=== PATIENT | female | born 1980 | race Caucasian/White ===

== ENCOUNTER 2016-10-13 14:29 | Emergency (ER) | payer BC, OTHER ==
[~2016-10-13] VITALS: Ht 165.1 cm; Wt 64.5 kg
[~2016-10-13 14:29] MED LIST: PRENTAB26 PO
[2016-10-13 14:34] VITALS: TEMP 36.4; Ht 165.1 cm; Wt 64.5 kg
[2016-10-13] MEDS ORDERED: SODIUM CHLORIDE 0.9% 1000ML 1,000 ML IV STA (15:25)
[2016-10-13 16:02] LABS: BASO % 0.2 %; BASO ABS # 0.01 K/uL (0-0.2); COMPLETE YES; EOS % 2.6 %; HEMATOCRIT 41.1 % (37-47); IG% 0.3 %; LYMPH % 29.7 %; MEAN CELL VOLUME 89.9 fL (80-100); MEAN CORPUSCULAR HEMOGLOBIN 31.3 pg (25-34); MEAN CORPUSCULAR HGB CONC 34.8 g/dl (32-36); MEAN PLATELET VOLUME 10.9 fL (7.4-10.4); MONO % 6.9 %; NEUT % 60.3 %; PLATELET COUNT 202 K/uL (130-400); RED BLOOD COUNT 4.57 M/uL (4.2-5.4); WHITE BLOOD COUNT 6.07 K/uL (4.8-10.8)
[2016-10-13 16:30] LABS: PREG INTERNAL NEGATIVE QC NEG CLEAR BACKGROUND; PREG INTERNAL POSITIVE QC POS CONTROL LINE
[2016-10-13 16:33] LABS: ALKALINE PHOSPHATASE 78 U/L (45-117); ALT/SGPT 20 U/L (12-78); AST/SGOT 21 U/L (15-37); BLOOD UREA NITROGEN 15 mg/dl (7-18); BUN/CREATININE RATIO 17.1 (10-20); CALCIUM 8.9 mg/dl (8.5-10.1); CARBON DIOXIDE 28 mmol/L (21-32); CHLORIDE 103 mmol/L (98-107); CREATININE 0.85 mg/dl (0.60-1.20); GLUCOSE 77 mg/dl (70-99); POTASSIUM 3.7 mmol/L (3.5-5.1); SODIUM 142 mmol/L (136-145)
[2016-10-13 16:41] LABS: URINE APPEARANCE CLEAR (CLEAR); URINE BILIRUBIN NEG (NEG); URINE COLOR YELLOW; URINE EPITHELIAL CELL AUTO 0-5 /lpf (0-5); URINE NITRITE NEG (NEG); UROBILINOGEN NEG (NEG)
[2016-10-13 16:43] LABS: MANUAL MICROSCOPIC REQUIRED? NO; REVIEW REQ? NO
--- NOTE | 2016-10-13 16:55 | DIAGNOSTIC IMAGING REPORT ---
EXAMINATION: PELVIC ULTRASOUND CLINICAL HISTORY: LOWER PELVIC PAIN/VAG SPOTTING PAIN. COMPARISON STUDY: None FINDINGS: The uterus measured 6.5 cm. The endometrial stripe measured 2 mm. The right ovary measured 2.8 cm maximum dimension.. The left ovary measured 2.0 cm maximum dimension. There is no ultrasonographic evidence of ovarian torsion. It should be noted that ovarian torsion can be present with normal Doppler ultrasonographic findings. There was no evidence of pathologic free pelvic fluid. IMPRESSION: Normal study Electronically signed by: Franc Milian M.D. 10/13/2016 4:54 PM Dictated Date/Time: 10/13/2016 4:52 PM
--- NOTE | 2016-10-13 17:30 | EMERGENCY ROOM VISIT NOTE ---
History First contact with patient: 15:10 Chief Complaint: ABDOMINAL PAIN Stated Complaint: ABDOMINAL PAIN,BACK PAIN Nursing Triage Summary: Triage note: Pt reports sharp abd pain in right lower abd pain at 1220 today that last approx 30 min. pt also reports lower back pain. pt reports right lower abd is tender at this time. History of Present Illness The patient is a 36 year old female who presents to the Emergency Room with complaints of sharp right lower quadrant abdominal pain that goes into the right lower back region. The patient reports that the pain developed around noon time today. The pain was severe and cramping for approximately 30 minutes before it started to subside. The patient did not have any nausea at the time of the pain. She now reports that the pain has decreased to a 2 out of 10. She denies any significant worsening with bending over or movement. She denies any prior history of kidney stones. She does report a remote history of an ovarian cyst. And has had some mild vaginal spotting. Last menstruation started 2 weeks ago, and the patient denies . She denies any urinary symptoms, diarrhea or constipation. The patient has had a prior history of C- section. Review of Systems HEENT: Denies dizziness, visual problems, hearing loss, tinnitus. Denies difficulty swallowing or oral lesions. PULMONARY: Denies cough, shortness of breath, sputum production or hemoptysis. CARDIOVASCULAR: Denies chest pain, palpitations, dyspnea on exertion, orthopnea or peripheral edema. GASTROINTESTINAL: Denies diarrhea, constipation, nausea or vomiting. Otherwise see history of present illness. GENITOURINARY: Denies dysuria, frequency, urgency or nocturia. NEUROLOGIC: Denies history of epilepsy, CVA, TIA or chronic headaches. MUSCULOSKELETAL: Denies history of joint tenderness/swelling. SKIN: Denies rashes or lesions. PSYCHIATRIC: Denies history of depression or mental illness. ENDOCRINE: Denies history of diabetes or thyroid disorders. Past Medical/Surgical History Medical Problems: (1) Post-dates Family History Unremarkable Social History Smoking Status: Never Smoker Drug Use: none Marital Status: Housing Status: lives with family Occupation Status: employed Current/Historical Medications Scheduled Multivit/Min/Iron/Fol Ac/Pren ( Vitamin), 1 TAB PO QAM Allergies Coded Allergies: No Known Allergies (Unverified , 07/04/16) Physical Exam Vital Signs Date Time Temp Pulse Resp B/P Pulse Ox O2 Delivery O2 Flow Rate FiO2 10/13/16 16:21 54 12 107/62 98 Room Air 10/13/16 14:34 36.4 64 18 132/86 98 Room Air Physical Exam CONSTITUTIONAL: Healthy and well nourished. Alert and oriented X 3 with positive affect. Patient does not appear in any acute distress. HEENT: Normocephalic, atraumatic. Pupils equal, round and reactive. No scleral icterus or conjunctival pallor. NECK: Full active range of motion without discomfort. RESPIRATORY: Clear to auscultation bilaterally with no wheezing, crackles, rhonchi or stridor. CARDIOVASCULAR: Regular rate and rhythm with no murmurs, rubs or gallops. GASTROINTESTINAL: Bowel sounds present in all quadrants. Patient has minimal suprapubic tenderness to palpation. Negative McBurney's point tenderness. Negative Rovsing sign. Negative psoas/obturator sign. Negative heel tap. Negative CVA tenderness. No abdominal rigidity, guarding or rebound. MUSCULOSKELETAL: Full range of motion of all joints without discomfort. INTEGUMENTARY: No rash or other significant dermatologic conditions noted. HEMATOLOGIC: No ecchymosis or petechiae appreciated. NEUROLOGIC: No focal neurologic deficits noted. Medical Decision & Procedures ER Provider Diagnostic Interpretation: Pelvic ultrasound was normal, and shows the following: EXAMINATION: PELVIC ULTRASOUND CLINICAL HISTORY: LOWER PELVIC PAIN/VAG SPOTTING PAIN. COMPARISON STUDY: None FINDINGS: The uterus measured 6.5 cm. The endometrial stripe measured 2 mm. The right ovary measured 2.8 cm maximum dimension.. The left ovary measured 2.0 cm maximum dimension. There is no ultrasonographic evidence of ovarian torsion. It should be noted that ovarian torsion can be present with normal Doppler ultrasonographic findings. There was no evidence of pathologic free pelvic fluid. IMPRESSION: Normal study. Laboratory Results 10/13/16 15:49 Red Blood Count 4.57, Mean Corpuscular Volume 89.9, Mean Corpuscular Hemoglobin 31.3, Mean Corpuscular Hemoglobin Concent 34.8, Mean Platelet Volume 10.9, Neutrophils (%) (Auto) 60.3, Lymphocytes (%) (Auto) 29.7, Monocytes (%) (Auto) 6.9, Eosinophils (%) (Auto) 2.6, Basophils (%) (Auto) 0.2, Neutrophils # (Auto) 3.66, Lymphocytes # (Auto) 1.80, Monocytes # (Auto) 0.42, Eosinophils # (Auto) 0.16, Basophils # (Auto) 0.01 10/13/16 15:49 Test 10/13/16 15:49 White Blood Count 6.07 K/uL (4.8-10.8) Red Blood Count 4.57 M/uL (4.2-5.4) Hemoglobin 14.3 g/dL (12.0-16.0) Hematocrit 41.1 % (37-47) Mean Corpuscular Volume 89.9 fL (80-100) Mean Corpuscular Hemoglobin 31.3 pg (25-34) Mean Corpuscular Hemoglobin Concent 34.8 g/dl (32-36) Platelet Count 202 K/uL (130-400) Mean Platelet Volume 10.9 fL (7.4-10.4) Neutrophils (%) (Auto) 60.3 % Lymphocytes (%) (Auto) 29.7 % Monocytes (%) (Auto) 6.9 % Eosinophils (%) (Auto) 2.6 % Basophils (%) (Auto) 0.2 % Neutrophils # (Auto) 3.66 K/uL (1.4-6.5) Lymphocytes # (Auto) 1.80 K/uL (1.2-3.4) Monocytes # (Auto) 0.42 K/uL (0.11-0.59) Eosinophils # (Auto) 0.16 K/uL (0-0.5) Basophils # (Auto) 0.01 K/uL (0-0.2) RDW Standard Deviation 43.7 fL (36.4-46.3) RDW Coefficient of Variation 13.3 % (11.5-14.5) Immature Granulocyte % (Auto) 0.3 % Immature Granulocyte # (Auto) 0.02 K/uL (0.00-0.02) Urine Color YELLOW Urine Appearance CLEAR (CLEAR) Urine pH 6.0 (4.5-7.5) Urine Specific [place] 1.000 (1.000-1.030) Urine Protein NEG (NEG) Urine Glucose (UA) NEG (NEG) Urine Ketones NEG (NEG) Urine Occult Blood TRACE (NEG) Urine Nitrite NEG (NEG) Urine Bilirubin NEG (NEG) Urine Urobilinogen NEG (NEG) Urine Leukocyte Esterase NEG (NEG) Urine WBC (Auto) 0 /hpf (0-5) Urine RBC (Auto) 0-4 /hpf (0-4) Urine Hyaline Casts (Auto) 0 /lpf (0-5) Urine Epithelial Cells (Auto) 0-5 /lpf (0-5) Urine Bacteria (Auto) NEG (NEG) Anion Gap 11.0 mmol/L (3-11) Est Creatinine Clear Calc Drug Dose 81.5 ml/min Estimated GFR () 101.5 Estimated GFR (Non- 87.5 BUN/Creatinine Ratio 17.1 (10-20) Calcium Level 8.9 mg/dl (8.5-10.1) Total Bilirubin 0.7 mg/dl (0.2-1) Direct Bilirubin mg/dl (0-0.2) Aspartate Amino Transf (AST/SGOT) 21 U/L (15-37) Alanine Aminotransferase (ALT/SGPT) 20 U/L (12-78) Alkaline Phosphatase 78 U/L (45-117) Total Protein 7.5 gm/dl (6.4-8.2) Albumin 4.0 gm/dl (3.4-5.0) Lipase 139 U/L (73-393) Human Chorionic Gonadotropin, Qual NEG (NEG) Chemistry Specimen Hemolysis The above labs were reviewed and were grossly normal. Medications Administered Medications (Trade) Dose Ordered Sig/Abraham Route Start Time Stop Time Status Last Admin Dose Admin Sodium Chloride (Nss 1000ml) 1,000 ml @ 999 mls/hr Q1H1M STAT IV 10/13/16 15:25 10/13/16 16:25 DC 10/13/16 16:21 999 MLS/HR ED Course Patient history and physical exam were performed. Nurse's notes were reviewed. Vital signs were reviewed and were normal. The patient refused any analgesics or antiemetics. IV access was established, and labs were drawn. The patient was hydrated with a liter normal saline. Review of labs shows no significant abnormal findings. Serum was negative. Pelvic ultrasound was also normal. On reexam, the patient reported no further discomfort. I did explain to the patient that she could potentially have early appendicitis, and was instructed to return to the emergency department if this develops. I did suggest that she follow-up with her [employer] with any persistent vaginal bleeding/spotting. I also discussed the possibility of other GI conditions, including constipation. I did offer further CT studies of the abdomen, although I do not feel it is warranted at this time. I also discussed the risks of unnecessary radiation exposure. At this point, the patient and agrees with conservative management. The patient was happy with plan of care, and voiced understanding of all discharge instructions. Medical Decision See previous section. The patient presents with rather abrupt onset of right lower quadrant pain that is now improving. The patient has no fever or leukocytosis to suggest infectious etiology. Her abdomen exam is rather benign. Pelvic ultrasound did not show any acute findings such as ovarian cyst. I do not suspect ovarian torsion. Urinalysis is not suggestive of UTI. Early appendicitis is certainly a possibility, and the patient will return if her symptoms progressively worsen. Impression Primary Impression: RLQ abdominal pain Departure Information Referrals Hudson Martinez M.D. (PCP) Patient Instructions [facility]
[2016-10-13 18:10] VITALS: BP 124/80; PULSE 73; O2SAT 100
== END 2016-10-13 18:20 | disposition home or self-care (01) ==
LOC: C.EDB 14:30
DX: R10.31 Right lower quadrant pain (principal); M54.5 Low back pain

== ENCOUNTER → 2016-11-11 | Outpatient (CLI) | payer BC ==
[~2016-11-11] MED LIST changes: +OPTIRAY 320 IV PRN
--- NOTE | 2016-11-12 07:28 | DIAGNOSTIC IMAGING REPORT ---
CT ABD/PELVIS IV AND ORAL CONT CLINICAL HISTORY: Recurrent right lower quadrant abdominal pain COMPARISON STUDY: None. TECHNIQUE: Following the IV administration of 93 mL of Optiray-320, CT scan of the abdomen and pelvis was performed from the lung bases to the proximal femurs. Images are reviewed in the axial, sagittal, and coronal planes. IV contrast was administered without complication. CT DOSE: 424.82 mGy.cm FINDINGS: Lower chest: There is asymmetric breast tissue with the left breast appearing larger than the right. There is a 2 mm pleural-based opacity within the left lower lobe, finding of doubtful clinical significance. There are minimal dependent atelectatic changes. Liver: The contrast-enhanced liver is normal in size, contour, and attenuation. There is no intrahepatic biliary ductal dilatation. The hepatic veins and portal veins are patent. Gallbladder: Unremarkable. Spleen: Normal in size and attenuation. Pancreas: Unremarkable. Adrenal glands: Unremarkable. Kidneys: There is symmetric renal cortical enhancement. The kidneys are normal in size without hydronephrosis. Bowel: There are no transition zones indicate bowel obstruction. The appendix appears normal. There is no evidence of acute diverticulitis. There are prominent collateral vessels posterior to the ascending colon. Peritoneum: There is trace free fluid likely physiologic. There is no free intraperitoneal air. There is rectus diastases. Vasculature: The abdominal aorta is normal in course and caliber. Adenopathy: None. Pelvic viscera: The bladder, and pelvic viscera are unremarkable. Skeletal structures: No destructive osseous lesions are seen. IMPRESSION: 1. No evidence of bowel obstruction. No evidence of free air 2. Normal appendix 3. No evidence of acute diverticulitis 4. Rectus diastases 5. Prominent collateral vessels in the region of the right paracolic gutter Electronically signed by: Von Olivares M.D. 11/11/2016 3:10 PM Dictated Date/Time: 11/11/2016 3:05 PM
== END | disposition home or self-care (01) ==
LOC: C.CTS 12:53
PROVIDERS: ATTEND Family Medicine
DX: R10.31 Right lower quadrant pain (principal)

== ENCOUNTER → 2017-04-22 | Outpatient (CLI) | payer BC ==
[~2017-04-22] MED LIST changes: -OPTIRAY 320 IV PRN
[2017-04-22 13:15] LABS: HEMATOCRIT 37.6 % (37-47); MEAN CELL VOLUME 88.7 fL (80-100); MEAN CORPUSCULAR HEMOGLOBIN 27.6 pg (25-34); MEAN CORPUSCULAR HGB CONC 31.1 g/dl (32-36); MEAN PLATELET VOLUME 11.1 fL (7.4-10.4); PLATELET COUNT 219 K/uL (130-400); RED BLOOD COUNT 4.24 M/uL (4.2-5.4); WHITE BLOOD COUNT 6.04 K/uL (4.8-10.8)
== END | disposition home or self-care (01) ==
LOC: C.LAB1850 11:41
PROVIDERS: ATTEND Physician Assistant
DX: N92.0 Excessive and frequent menstruation with regular cycle (principal)

== ENCOUNTER → 2017-05-01 | Outpatient (CLI) | payer BC | END | disposition home or self-care (01) | LOC: C.PATHSPEC 13:36 | PROVIDERS: ATTEND Obstetrics & Gynecology | DX: N92.0 Excessive and frequent menstruation with regular cycle (principal); N85.8 Other specified noninflammatory disorders of uterus ==

== ENCOUNTER → 2017-11-12 | Outpatient (CLI) | payer OTHER | END | disposition home or self-care (01) | LOC: C.LABSPEC 13:10 | PROVIDERS: ATTEND Obstetrics & Gynecology | DX: O09.41 Supervision of pregnancy with grand multiparity, first trimester (principal); Z3A.00 Weeks of gestation of pregnancy not specified ==

== ENCOUNTER → 2017-11-27 | Outpatient (CLI) | payer OTHER ==
[2017-11-27 13:16] LABS: BASO % 0.1 %; BASO ABS # 0.01 K/uL (0-0.2); EOS % 1.1 %; IG# 0.04 K/uL (0.00-0.02); LYMPH % 15.6 %; LYMPH ABS # 1.38 K/uL (1.2-3.4); MEAN CELL VOLUME 87.6 fL (80-100); MEAN CORPUSCULAR HGB CONC 34.2 g/dl (32-36); MEAN PLATELET VOLUME 10.7 fL (7.4-10.4); MONO % 5.4 %; MONO ABS # 0.48 K/uL (0.11-0.59); NEUT % 77.3 %; NEUT ABS # 6.86 K/uL (1.4-6.5); PLATELET COUNT 190 K/uL (130-400); RED CELL DISTRIBUTION WIDTH CV 14.6 % (11.5-14.5); WHITE BLOOD COUNT 8.87 K/uL (4.8-10.8)
== END | disposition home or self-care (01) ==
LOC: C.LAB1850 11:30
PROVIDERS: ATTEND Obstetrics & Gynecology
DX: O09.41 Supervision of pregnancy with grand multiparity, first trimester (principal)

== ENCOUNTER → 2017-11-27 | Outpatient (CLI) | payer OTHER | END | disposition home or self-care (01) | LOC: C.PAPS 14:03 | PROVIDERS: ATTEND Obstetrics & Gynecology | DX: O09.41 Supervision of pregnancy with grand multiparity, first trimester (principal) ==

== ENCOUNTER → 2018-01-02 | Outpatient (CLI) | payer OTHER | LOC: C.LAB1850 10:34 | PROVIDERS: ATTEND Obstetrics & Gynecology | DX: O09.42 Supervision of pregnancy with grand multiparity, second trimester (principal); Z3A.00 Weeks of gestation of pregnancy not specified ==